=== PATIENT | male | born 1935 | race Hispanic/Latino ===

== ENCOUNTER → 2017-09-15 | Outpatient (CLI) | payer OTHER, MEDICARE | END | disposition home or self-care (01) | LOC: RAH 08:50 | PROVIDERS: ATTEND Family Medicine | DX: R19.00 Intra-abdominal and pelvic swelling, mass and lump, unspecified site (principal); N28.1 Cyst of kidney, acquired; N20.0 Calculus of kidney; N13.30 Unspecified hydronephrosis | CPT/HCPCS: 74176 ==

== ENCOUNTER 2017-09-27 17:16 | Emergency (ER) | payer OTHER, MEDICARE | END 2017-09-27 18:46 | disposition home or self-care (01) | LOC: EDH 17:16 | DX: S43.085A Other dislocation of left shoulder joint, initial encounter (principal); I48.91 Unspecified atrial fibrillation; W18.39XA Other fall on same level, initial encounter; Y93.01 Activity, walking, marching and hiking; Y92.89 Other specified places as the place of occurrence of the external cause; Y99.8 Other external cause status | CPT/HCPCS: 23650; 73020; 73030 ==

== ENCOUNTER 2017-10-05 08:11 | Day surgery (SDC) | payer OTHER, MEDICARE ==
[2017-10-05 09:38] LABS: INR 1.79 (0.85-1.15); PARTIAL THROMBOPLASTIN TIME 40.9 SEC (26.3-35.5); PROTHROMBIN TIME 18.6 SEC (9.6-11.6)
== END 2017-10-05 10:45 ==
LOC: DAH 08:11 → EDSTATUS 10:00 → DAH 10:45
PROVIDERS: ATTEND Family Medicine
DX: R19.05 Periumbilic swelling, mass or lump (principal); Z53.9 Procedure and treatment not carried out, unspecified reason
CPT/HCPCS: 36415; 85610; 85730; A4606

== ENCOUNTER 2017-10-10 08:28 | Day surgery (SDC) | payer OTHER, MEDICARE ==
[2017-10-10 09:42] LABS: INR 1.58 (0.85-1.15); PARTIAL THROMBOPLASTIN TIME 37.7 SEC (26.3-35.5); PROTHROMBIN TIME 16.4 SEC (9.6-11.6)
== END 2017-10-10 09:00 ==
LOC: DAH 08:28
PROVIDERS: ATTEND Family Medicine
DX: D49.89 Neoplasm of unspecified behavior of other specified sites (principal); Z53.9 Procedure and treatment not carried out, unspecified reason; Z79.01 Long term (current) use of anticoagulants; I48.91 Unspecified atrial fibrillation; Z68.41 Body mass index [BMI] 40.0-44.9, adult; F32.9 Major depressive disorder, single episode, unspecified; I50.1 Left ventricular failure, unspecified; E66.01 Morbid (severe) obesity due to excess calories; Z82.49 Family history of ischemic heart disease and other diseases of the circulatory system; Z79.899 Other long term (current) drug therapy; Z98.84 Bariatric surgery status; Z98.49 Cataract extraction status, unspecified eye; I12.9 Hypertensive chronic kidney disease with stage 1 through stage 4 chronic kidney disease, or unspecified chronic kidney disease; N18.9 Chronic kidney disease, unspecified
CPT/HCPCS: 36415; 85610; 85730